=== PATIENT | female | born 2000 ===

== ENCOUNTER 2020-05-25 07:45 | Outpatient (CLI) | payer OTHER ==
--- NOTE | 2020-05-25 08:47 | ULT ---
ABDOMINAL ULTRASOUND HISTORY: Lower abdominal pain. FINDINGS: Liver: Within normal limits. Gallbladder: Contracted and not well evaluated on this exam. No obvious gallbladder calculus is appre ciated. Common duct: Common duct is normal in caliber measuring 0.3 cm in diameter. Pancreas: The limited visualized pancreas demonstrates a normal sonographic appearance. IVC: Limited visualized IVC has a normal sonographic appearance. Aorta: The aorta is normal in caliber. Spleen: Within normal limits. Kidneys: Kidneys demonstrate a normal sonographic appearance bilaterally with the right kidney measur ing 11.3 cm in length, and the left kidney measures 10.5 cm in length. IMPRESSION: 1. Gallbladder is contracted limiting evaluation. The abdominal ultrasound is otherwise within normal limits.
--- NOTE | 2020-05-25 08:53 | ULT ---
Exam: Pelvic ultrasound HISTORY: Lower abdominal pain. COMPARISON: None TECHNIQUE: Multiple grayscale and color Doppler images were obtained in a transabdominal and transvag inal pelvic ultrasound. Spectral analysis of the Doppler waveforms of the ovaries were performed. FINDINGS: CERVIX: Within normal limits where visualized. UTERUS: Normal in size without focal abnormality. ENDOMETRIAL STRIPE: 4 mm which is within normal limits for a normal menstruating female patient. No f luid or fluid collection is seen in the endometrial canal. Trace free fluid is present. This is likely physiologic in origin. RIGHT OVARY: Normal flow, without focal mass. LEFT OVARY: Normal flow, without focal mass. IMPRESSION: Normal-appearing uterus and bilateral ovaries.
== END 2020-05-25 07:46 | disposition home or self-care (01) ==
LOC: BICULT 07:45
PROVIDERS: ATTEND Family Medicine
DX: R10.84 Generalized abdominal pain (principal)
CPT/HCPCS: 76856; 93975